=== PATIENT | male | born 1980 | race Caucasian/White ===

== ENCOUNTER 2021-09-03 08:50 | Inpatient (IN) ==
[2021-09-03 09:11] LABS: Basophils % 0.3 % (0.0-0.8); Eosinophils # 0.3 10*3/uL (0.0-0.87); Eosinophils % 4.8 % (0.00-10.9); Hematocrit 40.8 VOL% (42.0-52.0); Immature Granulocytes % 0.5 %; Immature Granulocytes Absolute 0.03 #; Lymphocytes # 1.6 10*3/uL (1.4-4.0); Lymphocytes % 26.4 % (21.2-54.2); Mean Corpuscular HGB Conc 31.9 GM/DL (32-36); Mean Corpuscular Volume 92.1 FL (87-102); Mean Platelet Volume 10.1 FL (9.6-12.0); Monocytes # 0.6 10*3/uL (0.11-0.8); Monocytes % 9.5 % (1.7-12.7); Neutrophils % 58.5 % (38.7-73.9); Platelet Count 261 T/CUMM (130-400); Red Blood Count 4.43 MC/CUMM (3.8-5.5); Red Cell Distribution Width 13.3 % (9.3-17.3); White Blood Count 6.1 T/CUMM (4-12)
[2021-09-03] MEDS ORDERED: DILTIAZEM 50 MG/10 ML VIAL IV STA ×2 (09:11→09:41)
[2021-09-03] MEDS ORDERED: SODIUM CHLORIDE 0.9% 500 ML IV STA (09:11)
[2021-09-03 09:38] LABS: Albumin 3.7 G/DL (3.4-5.0); Bilirubin,Total 0.4 MG/DL (0.20-1.00); Potassium 4.2 MMOL/L (3.5-5.1); Thyroid Stimulating Hormone 1.29 uIU/ml (0.358-3.74)
[2021-09-03 09:46] LABS: Osmolality,Calculated 282.3 MOS/KG (273-304)
[2021-09-03] MEDS ORDERED: DILTIAZEM 100 MG VIAL.ADD IV ONE (09:53)
[2021-09-03] MEDS: DILTIAZEM INJ 100 MG in SODIUM CHLORIDE 0.9% 100 ML IV SCH ×2 (10:00→16:50)
[2021-09-03 10:07] LABS: Barbiturates Screen,Urine Negative (Negative); Benzodiazepines Screen,Urine Negative (Negative); Cannabinoid Screen,Urine Negative (Negative); Opiate Screen,Urine Negative (Negative); Phencyclidine Screen,Urine Negative (Negative)
[2021-09-03] MEDS ORDERED: GLUCAGON 1 MG VIAL IM PRN (10:21)
[2021-09-03] MEDS ORDERED: SIMETHICONE CHEW 125 MG TABLET PO PRN (10:21)
[2021-09-03] MEDS ORDERED: ACETAMINOPHEN 325 MG TABLET PO PRN (10:21)
[2021-09-03] MEDS ORDERED: ONDANSETRON 4 MG/2 ML VIAL IV PRN (10:21)
[2021-09-03] MEDS ORDERED: DEXTROSE 5% 250 ML BAG IV PRN (10:21)
[2021-09-03] MEDS ORDERED: hydrALAZINE 20 MG/1 ML VIAL IV PRN (10:21)
[2021-09-03] MEDS ORDERED: BISACODYL 5 MG TABLET PO ONE (10:23)
[2021-09-03] MEDS: DOCUSATE SODIUM 100 MG CAPSULE PO SCH ×2 (11:13→21:17)
[2021-09-03] MEDS: PANTOPRAZOLE 40 MG TABLET PO SCH (11:16)
[2021-09-03] MEDS: INSULIN LISPRO 100 UNIT/ML SUBCUT SCH ×3 (12:05→22:09)
[2021-09-03] MEDS: TAMSULOSIN 0.4 MG CAPSULE PO SCH (12:40)
[2021-09-03 12:50] LABS: Urine Appearance Clear (Clear); Urine Color Yellow (Yellow)
[2021-09-03 12:51] LABS: Bilirubin,Urine Negative (Negative); Blood, Urine Negative (Negative); Glucose,Urine (UA) Negative (Negative); Ketones,Urine Negative (Negative); Mucus,Urine Occasional /LPF (Occasional); Nitrite,Urine Negative (Negative); Protein,Urine Negative (Negative); RBC,Urine 1 /HPF (0-4)
[2021-09-03 12:52] LABS: Urine Urobilinogen 0.2 eU/dL (<2.0)
[2021-09-03] MEDS ORDERED: DEXTROSE 10% 250 ML BAG IV PRN (17:00)
[2021-09-03] MEDS ORDERED: AMIODARONE INJ 150 MG in DEXTROSE 5% 100 ML IV ONE (18:13)
[2021-09-03] MEDS ORDERED: AMIODARONE INJ 450 MG in DEXTROSE 5% 241 ML IV SCH (18:30)
[2021-09-03] MEDS: APIXABAN 5 MG TABLET PO SCH (21:17)
[2021-09-03] MEDS ORDERED: METOPROLOL TARTRATE 25 MG TABLET PO ONE (23:52)
[2021-09-04] MEDS: AMIODARONE INJ 450 MG in DEXTROSE 5% 241 ML IV SCH ×2 (01:31→05:48)
[2021-09-04 05:28] LABS: Basophils % 0.5 % (0.0-0.8); Eosinophils # 0.3 10*3/uL (0.0-0.87); Eosinophils % 4.8 % (0.00-10.9); Hematocrit 38.8 VOL% (42.0-52.0); Hemoglobin 12.2 GM/DL (14.0-18.0); Immature Granulocytes % 0.5 %; Immature Granulocytes Absolute 0.03 #; Lymphocytes # 1.9 10*3/uL (1.4-4.0); Lymphocytes % 32.1 % (21.2-54.2); Mean Corpuscular HGB Conc 31.4 GM/DL (32-36); Mean Corpuscular Volume 93.9 FL (87-102); Mean Platelet Volume 10.4 FL (9.6-12.0); Monocytes # 0.6 10*3/uL (0.11-0.8); Monocytes % 10.8 % (1.7-12.7); Neutrophils % 51.3 % (38.7-73.9); Platelet Count 239 T/CUMM (130-400); Red Blood Count 4.13 MC/CUMM (3.8-5.5); Red Cell Distribution Width 13.4 % (9.3-17.3); White Blood Count 5.9 T/CUMM (4-12)
[2021-09-04 05:51] LABS: Calcium 8.5 MG/DL (8.5-10.1); Risk Ratio 2.96; VLDL Cholesterol 24.6 MG/DL
[2021-09-04] MEDS: INSULIN LISPRO 100 UNIT/ML SUBCUT SCH ×4 (07:50→21:20)
[2021-09-04] MEDS: APIXABAN 5 MG TABLET PO SCH ×2 (08:40→21:20)
[2021-09-04] MEDS: DOCUSATE SODIUM 100 MG CAPSULE PO SCH ×2 (08:40→21:20)
[2021-09-04] MEDS: PANTOPRAZOLE 40 MG TABLET PO SCH (08:41)
[2021-09-04] MEDS: TAMSULOSIN 0.4 MG CAPSULE PO SCH (08:41)
[2021-09-04] MEDS ORDERED: METOPROLOL TARTRATE 25 MG TABLET PO SCH (09:00)
[2021-09-04] MEDS ORDERED: DILTIAZEM 50 MG/10 ML VIAL IV ONE (09:51)
[2021-09-04] MEDS ORDERED: DILTIAZEM INJ 100 MG in SODIUM CHLORIDE 0.9% 100 ML IV SCH (10:00)
[2021-09-04] MEDS: METOPROLOL TARTRATE 50 MG TABLET PO SCH (21:20)
[2021-09-05] MEDS: INSULIN LISPRO 100 UNIT/ML SUBCUT SCH ×2 (08:22→14:00)
[2021-09-05 08:26] LABS: Basophils % 0.1 % (0.0-0.8); Eosinophils # 0.2 10*3/uL (0.0-0.87); Eosinophils % 2.6 % (0.00-10.9); Hematocrit 38.4 VOL% (42.0-52.0); Hemoglobin 12.3 GM/DL (14.0-18.0); Immature Granulocytes % 0.3 %; Immature Granulocytes Absolute 0.02 #; Lymphocytes # 1.5 10*3/uL (1.4-4.0); Lymphocytes % 21.6 % (21.2-54.2); Mean Corpuscular Volume 92.3 FL (87-102); Mean Platelet Volume 11.1 FL (9.6-12.0); Monocytes # 0.7 10*3/uL (0.11-0.8); Monocytes % 9.7 % (1.7-12.7); Neutrophils % 65.7 % (38.7-73.9); Platelet Count 222 T/CUMM (130-400); Red Blood Count 4.16 MC/CUMM (3.8-5.5); Red Cell Distribution Width 13.2 % (9.3-17.3); White Blood Count 6.9 T/CUMM (4-12)
[2021-09-05 08:32] LABS: Calcium 8.8 MG/DL (8.5-10.1); Osmolality,Calculated 277.5 MOS/KG (273-304); Potassium 4.3 MMOL/L (3.5-5.1)
[2021-09-05] MEDS: DOCUSATE SODIUM 100 MG CAPSULE PO SCH (08:39)
[2021-09-05] MEDS: TAMSULOSIN 0.4 MG CAPSULE PO SCH (08:39)
[2021-09-05] MEDS: PANTOPRAZOLE 40 MG TABLET PO SCH (08:39)
[2021-09-05] MEDS: METOPROLOL TARTRATE 50 MG TABLET PO SCH (08:39)
[2021-09-05] MEDS: APIXABAN 5 MG TABLET PO SCH (08:40)
[2021-09-05] MEDS ORDERED: DILTIAZEM CD 120 MG CAPSULE PO SCH (09:00)
[2021-09-05 12:30] VITALS: BP 143/53
[2021-09-10] MEDS ORDERED: ERGOCALCIFEROL 50,000 UNIT CAPSULE PO SCH (09:00)
== END 2021-09-05 15:31 | disposition home or self-care (01) | DRG 309 ==
LOC: N.ED 08:50 → N.EDINP 08:50 → SUATTDRO 10:21 → N.TELEN 23:14
PROVIDERS: ADMIT Family Medicine; ATTEND Internal Medicine